=== PATIENT | female | born 1965 | race Native Hawaiian/Other Pacific Islander ===

== ENCOUNTER 2020-11-30 16:10 | Emergency (ER) | payer OTHER ==
[~2020-11-30] VITALS: Ht 167.6 cm; Wt 87.1 kg
[2020-11-30 17:05] VITALS: BP 158/92; TEMP 98.7
== END 2020-11-30 17:05 | disposition home or self-care (01) ==
LOC: ED 16:10
DX: M25.572 Pain in left ankle and joints of left foot (principal)
CPT/HCPCS: 99282